=== PATIENT | male | born 1935 | race Caucasian/White ===

== ENCOUNTER 2021-01-29 16:54 | Emergency (ER) | payer MEDICARE ==
[~2021-01-29] VITALS: Wt 80.7 kg
[2021-01-29] MEDS ORDERED: HYDROCODON-ACE1 EAC1 PO (20:29)
== END 2021-01-29 20:37 | disposition home or self-care (01) ==
LOC: ED 16:54
DX: S22.32XA Fracture of one rib, left side, initial encounter for closed fracture (principal); N18.9 Chronic kidney disease, unspecified; W01.198A Fall on same level from slipping, tripping and stumbling with subsequent striking against other object, initial encounter; Y93.89 Activity, other specified; Y92.89 Other specified places as the place of occurrence of the external cause; Y99.8 Other external cause status